=== PATIENT | female | born 1960 | race Hispanic/Latino ===

== ENCOUNTER 2023-08-01 10:03 | Outpatient (CLI) | payer MEDICARE | END 2023-08-01 10:04 | disposition home or self-care (01) | LOC: CSHWCC 10:03 | PROVIDERS: ATTEND Physician Assistant | DX: E11.622 Type 2 diabetes mellitus with other skin ulcer (principal); L98.492 Non-pressure chronic ulcer of skin of other sites with fat layer exposed | CPT/HCPCS: 99211; G0463 ==

== ENCOUNTER 2023-08-05 15:23 | Outpatient (CLI) | payer MEDICARE | END 2023-08-05 15:24 | disposition home or self-care (01) | LOC: CSHWCC 15:23 | PROVIDERS: ATTEND Physician Assistant | DX: E11.622 Type 2 diabetes mellitus with other skin ulcer (principal); L98.499 Non-pressure chronic ulcer of skin of other sites with unspecified severity | CPT/HCPCS: 99212; G0463 ==

== ENCOUNTER 2023-08-09 12:15 | Outpatient (CLI) | payer MEDICARE | END 2023-08-09 12:16 | disposition home or self-care (01) | LOC: CSHWCC 12:15 | PROVIDERS: ATTEND Physician Assistant | DX: E11.622 Type 2 diabetes mellitus with other skin ulcer (principal); L98.499 Non-pressure chronic ulcer of skin of other sites with unspecified severity | CPT/HCPCS: 99211; G0463 ==

== ENCOUNTER 2023-08-12 08:18 | Outpatient (CLI) | payer MEDICARE | END 2023-08-12 08:19 | disposition home or self-care (01) | LOC: CSHWCC 08:18 | PROVIDERS: ATTEND Physician Assistant | DX: E11.622 Type 2 diabetes mellitus with other skin ulcer (principal); L98.492 Non-pressure chronic ulcer of skin of other sites with fat layer exposed | CPT/HCPCS: 97597 ==